=== PATIENT | female | born 1940 | race American Indian/Alaskan Native ===

== ENCOUNTER 2018-03-12 08:00 | Emergency (ER) | payer MEDICARE ==
[2018-03-12 08:00] VITALS: BMI 29.5
[2018-03-12 08:08] VITALS: BP 167/72; PULSE 76; RESP 16; TEMP 98.9; O2SAT 98
--- NOTE | 2018-03-12 09:15 | C.PDOC ---
History Of Present Illness 78 yo female, hx of htn hld, [employer] siwth left hand pain 2/2 "her carpal tunnel ". pt states she has had pain for weeks, already at negative xr. pain and throbbing to 1st 3 digits. was told to f/u with a spealist, but was too far from her house, requesting name of specialist closer. no trauma. no fevers, Time Seen by Provider: 03/12/18 09:04 Chief Complaint (Nursing): Upper Extremity Problem/Injury Past Medical History Reviewed: Historical Data, Nursing Documentation, Vital Signs Vital Signs: Last Vital Signs Temp 98.9 F 03/12/18 08:05 Pulse 76 03/12/18 08:05 Resp 16 03/12/18 08:05 BP 167/72 H 03/12/18 08:05 Pulse Ox 98 03/12/18 08:05 - Medical History PMH: Arthritis (b/l knees), Fractures (right wrist), HTN, Hypercholesterolemia, Osteoporosis - [facility] Procedures ENDO RECTUM POLYPECTOMY (02/20/13) Family History: States: Unknown Family Hx - Social History Hx Tobacco Use: No Hx Alcohol Use: No Hx Substance Use: No - Immunization History Hx Tetanus Toxoid Vaccination: No Hx Influenza Vaccination: No Hx Pneumococcal Vaccination: No Review Of Systems Musculoskeletal: Positive for: Hand Pain (left) Physical Exam - Physical Exam Appears: Well, No Acute Distress Skin: Normal Color, Warm, Dry Eye(s): bilateral: Normal Inspection, PERRL, EOMI Nose: Normal Throat: Normal Neck: Normal Cardiovascular: Rhythm Regular Respiratory: Normal Breath Sounds Gastrointestinal/Abdominal: Normal Exam Back: Normal Inspection Extremity: Normal ROM, Other ((+)left tinels, (-)phalens normal rom, no erythema ) ED Course And Treatment O2 Sat by Pulse Oximetry: 98 Medical Decision Making Medical Decision Making: suspect carpal tunnel vs arthritis. no trauma. already previous imagign. advise outpt fu. Disposition - Disposition Referrals: Savanna Bennett MD [Staff Provider] - Disposition: HOME/ ROUTINE Disposition Time: 09:17 Condition: STABLE Additional Instructions: please follow up with your doctor. return to er with worsening symptoms or concerns. Prescriptions: Naproxen [Naprosyn] 500 mg PO BID PRN #14 tablet PRN Reason: Pain, Mild (1-3) Instructions: Hand Pain - Clinical Impression Clinical Impression: Hand pain
== END 2018-03-12 09:24 | disposition home or self-care (01) ==
LOC: C.ER 08:00
DX: M79.642 Pain in left hand (principal)
CPT/HCPCS: 96372; 99283; J1885